=== PATIENT | female | born 1990 | race Caucasian/White ===

== ENCOUNTER → 2018-09-13 17:13 | Outpatient (CLI) | payer OTHER, SELFPAY ==
[2018-09-13 17:29] LABS: Bacteria Urine None Seen; RBC Urine None Seen (0-5/HPF); WBC Urine None Seen (0-5/HPF)
[2018-09-13 18:50] LABS: Hematocrit 38.2 % (36-46); Hemoglobin 13.5 g/dL (12.0-16.0); Mean Corpuscular HGB Conc 35.2 % (30-36); Mean Corpuscular Hemoglobin 33.2 PG (26-34); Mean Corpuscular Volume 94.3 fL (80-100); Platelet Count 243 X10^3/uL (150-400); Red Blood Cell Count 4.05 X10^6/uL (4.0-5.2); Red Cell Distribution Width 11.7 % (11.6-14.8); White Blood Cell Count 6.7 X10^3/uL (4.5-11.0)
[2018-09-13 19:50] LABS: Appearance Urine UA CLEAR; Bilirubin Urine UA NEGATIVE (NEGATIVE); Color Urine UA YELLOW; Glucose Urine UA NEGATIVE (Negative); Ketones Urine UA NEGATIVE (NEGATIVE); Leukocyte Esterase Urine UA NEGATIVE (NEGATIVE); Nitrite Urine UA NEGATIVE (Negative); Occult Blood Urine UA NEGATIVE (Negative); Protein Urine UA NEGATIVE (Negative); Specific Gravity Urine UA 1.015 (1.000-1.035); Urobilinogen Urine UA 0.2 E.U./dL (0.2)
[2018-09-13 19:51] LABS: Culture Indicated Urine Cult Not Indicated; Squamous Epithelial Cell Urine 5-10 /HPF (0-5/HPF)
[2018-09-13 20:36] LABS: Hepatitis B Surface Antigen NEGATIVE s/c (NEGATIVE); Rubella Antibody IgG 40.4 IU/mL (>15)
[2018-09-13 20:51] LABS: HIV 1 and 2 Antibody NEGATIVE (NEGATIVE)
[2018-09-15 12:21] LABS: RPR Screen Nonreactive (Nonreactive)
== END ==
PROVIDERS: Visit Provider Nurse Practitioner Obstetrics & Gynecology
DX: Z34.80 Encounter for supervision of other normal pregnancy, unspecified trimester (principal)
CPT/HCPCS: 36415; 81001; 85027; 86592; 86703; 86762; 86850; 86900; 86901; 87086; 87340

== ENCOUNTER → 2018-09-26 16:39 | Outpatient (REF) | payer OTHER, SELFPAY ==
[2018-09-26 18:34] LABS: Urine Chlamydia NOT DETECTED; Urine N gonorrhoeae NOT DETECTED
== END ==
LOC: LAB 16:39
PROVIDERS: Visit Provider Nurse Practitioner Obstetrics & Gynecology
DX: Z34.91 Encounter for supervision of normal pregnancy, unspecified, first trimester (principal); Z3A.01 Less than 8 weeks gestation of pregnancy
CPT/HCPCS: 87491; 87591

== ENCOUNTER → 2018-09-27 14:23 | Outpatient (CLI) | payer OTHER, SELFPAY ==
--- NOTE | 2018-09-27 | DI.US.S_ITS ---
PROCEDURE: US OB <= 14 WEEKS FETUS INDICATIONS: DATING AND VIABILITY OUTSIDE/PRIOR DATING DATA: Last menstrual period (LMP): 07/26/18. LMP-based estimated date of delivery (JUANCARLOS): 05/02/19. First dating scan (date and location): 09/27/18. Estimated date of delivery (JUANCARLOS) from first dating scan: 05/25/19. TECHNIQUE: Real-time scanning was performed of the fetus and maternal pelvic organs, with image documentation. Endovaginal scanning was also performed to better visualize the fetus and maternal ovaries. COMPARISON: None. FINDINGS: Embryo: [place]-rump length measured 2 mm corresponding to 5 weeks 5 days. Embryonic heart rate measured 97 beats per minute. Measurement variability in dating: +/- 4 weeks by LMP, +/- 7 days by mean sac diameter (use before 6 weeks gestation if crown-rump length not able to be measured), +/- 5 days by crown-rump length (up to 8 weeks 6 days gestation), +/- 7 days by crown-rump length (up to 13 weeks 6 days gestation). Maternal organs: Ovaries within normal limits, with left corpus luteal cyst. Limited images through the kidneys demonstrate no hydronephrosis. IMPRESSION: 5 week 5 day single living IUP. Dictated by: Eugenio Oro [facility] Interpreted: Prateek Rogers MD on 09/27/2018 at 15:59 Approved by: Prateek Rogers M.D. on 09/27/2018 at 16:47
== END ==
PROVIDERS: Visit Provider Nurse Practitioner Obstetrics & Gynecology
DX: Z34.91 Encounter for supervision of normal pregnancy, unspecified, first trimester (principal); Z3A.01 Less than 8 weeks gestation of pregnancy
CPT/HCPCS: 76801

== ENCOUNTER → 2018-12-10 16:36 | Outpatient (ROUT) | payer OTHER, SELFPAY ==
[2018-12-19 10:50] LABS: AFP, Serum 48.8 ng/mL; Calc Gestational Age 16.3; Est Date Determined by NOT GIVEN; Maternal Weight 155 lbs; Mother Ethnic Origin CAUCASIAN; Number of Fetuses 1; Prev Pregnancies Down Syndrome NOT GIVEN
== END ==
PROVIDERS: Visit Provider Nurse Practitioner Obstetrics & Gynecology
DX: Z34.82 Encounter for supervision of other normal pregnancy, second trimester (principal)
CPT/HCPCS: 82105

== ENCOUNTER → 2019-01-05 14:59 | Outpatient (CLI) | payer OTHER, SELFPAY ==
--- NOTE | 2019-01-05 | DI.US.S_ITS ---
PROCEDURE: US OB >= 14 WEEKS FETUS INDICATIONS: 20 WEEK ANATOMY OUTSIDE/PRIOR DATING DATA: Last menstrual period (LMP): 07/26/2018. LMP-based estimated date of delivery (JUANCARLOS): 05/02/2019. First dating scan (date and location): 09/27/2018. Estimated date of delivery (JUANCARLOS) from first dating scan: 05/25/2019. TECHNIQUE: Real-time scanning was performed of the fetus, with image documentation and biometric measurements. COMPARISON: Ultrasound 09/27/2018. FINDINGS: General: A single living intrauterine gestation is present. Presentation: Vertex. Placenta: Placental position is posterior, without previa. Low lying approximately 2.5 cm from the internal cervical os. Amniotic fluid index: 16.8 cm, normal range is 5-24 cm. heart rate: 141 beats per minute. Maternal cervical canal: 3.7 cm long. Normal lower limit is 2.5 cm. biometrics: Biparietal diameter: 4.7 cm. 20 weeks 2/7 days. Head circumference: 18.0 cm. 20 weeks 3/7 days. Abdominal circumference: 16.6 cm. 21 weeks 4/7 days. Femur length: 3.5 cm. 21 weeks 1/ 7 days. Estimated gestational age from initial scan: 20 weeks 0/7 days. Composite gestational age from present scan: 21 weeks 0/7 days Estimated weight and percentile: 411g. 97th percentile Measurement variability for biometric dating: +/- 7 days from 14 weeks to 15 weeks 6 days gestation, +/- 10 days from 16 weeks to 21 weeks 6 days gestation, +/- 2 weeks from 22 weeks to 27 weeks 6 days gestation, +/- 3 weeks for 28 weeks gestation or later. weight reference: 4500 g or EFW >90/95% is considered macrosomia or large for gestational age. EFW <10% is small for gestational age. EFW 5% or less is considered intra-uterine growth restriction. Anatomic survey: Neuro: Ventricles are non-dilated at less than 10 mm. Cisterna magna is normal at 3-11 mm. Cerebellum is normal in size and morphology. Nuchal skin fold: Normal at less than 6 mm between 14-21 weeks gestational age. Face: Nose and lips, facial profile are normal. Spine: No evidence for spina bifida. Heart: 4-chambered heart is present, with normal ventricular outflow tracts. Diaphragm: Diaphragm is intact. Stomach: Left-sided stomach is present. Kidneys: No hydronephrosis. Normal is less than 5 mm in 2nd trimester, less than 7 mm in 3rd trimester. Cord: 3-vessel cord has orthotopic insertion. Bladder: Normal in size. Extremities: All 4 extremities identified. IMPRESSION: 1.[place] living intrauterine at 21 weeks 0/7 days based on today's ultrasound. This is concordant with the initial first trimester ultrasound + or -10 days. There is expected interval growth. Estimated weight is in the 97th percentile. 2. Low lying placenta. Normal amniotic fluid. Recommend followup ultrasound. 3. Normal and complete anatomic survey. Dictated by: Williams Harris M.D. on 01/05/2019 at 22:02 Approved by: Williams Harris M.D. on 01/05/2019 at 22:14
== END ==
PROVIDERS: Visit Provider Nurse Practitioner Obstetrics & Gynecology
DX: Z36.89 Encounter for other specified antenatal screening (principal); Z3A.21 21 weeks gestation of pregnancy
CPT/HCPCS: 76811

== ENCOUNTER → 2019-02-17 06:51 | Outpatient (CLI) | payer OTHER, SELFPAY ==
[2019-02-17 09:17] LABS: Hemoglobin 12.7 g/dL (12.0-16.0); Mean Corpuscular HGB Conc 35.2 % (30-36); Mean Corpuscular Volume 96.5 fL (80-100); Platelet Count 160 X10^3/uL (150-400); Red Blood Cell Count 3.74 X10^6/uL (4.0-5.2); Red Cell Distribution Width 12.8 % (11.6-14.8); White Blood Cell Count 8.1 X10^3/uL (4.5-11.0)
[2019-02-17 09:19] LABS: Glucose Tol Interpretation INTERPRETATION
[2019-02-17 09:54] LABS: Glucose 1 Hour 167 mg/dL (70-170)
[2019-02-17 10:01] LABS: Glucose Fasting 79 mg/dL (70-100)
[2019-02-17 10:31] LABS: Glucose 2 Hour 98 mg/dL (70-140)
== END ==
PROVIDERS: Visit Provider Nurse Practitioner Obstetrics & Gynecology
DX: Z34.82 Encounter for supervision of other normal pregnancy, second trimester (principal)
CPT/HCPCS: 36415; 82951; 82952; 85027

== ENCOUNTER → 2019-04-29 12:09 | Outpatient (ROUT) | payer OTHER, SELFPAY | PROVIDERS: Visit Provider Nurse Practitioner Obstetrics & Gynecology | DX: Z11.0 Encounter for screening for intestinal infectious diseases (principal) | CPT/HCPCS: 87081 ==

== ENCOUNTER 2019-05-24 04:05 | Observation (INO) | payer OTHER, SELFPAY ==
--- NOTE | 2019-05-24 07:49 | PM.OBTRLD ---
Visit Information Visit Information Date of evaluation: 05/24/19 Primary OB Provider: Jillian Lee On-call OB Provider: Jillian Lee Reason for Evaluation: Yes rupture of membranes Comments/Additional reasons for admission: Gross SROM @ 0300 Vital Signs Vital Signs: BP 116/71, HR101, T36.1C, SpO2 97% (RA) COUNT INCLUDES THE [facility] Social History Smoking Status: Never smoker Review of Systems Review of Systems ROS Unobtainable: All systems reviewed & are unremarkable except as noted in HPI and below Exam Vital Signs (past 8 hours): P 116/71, HR101, T36.1C, SpO2 97% (RA) Narrative Exam Narrative: Pt calm, not breathing through contractions. OB/External & Speculum: deferred Manual OB Exam: other (deferred) Uterus Location (Fundal Height): 39 Presentation: vertex Amniotic Fluid: clear Evaluation Evaluation Baseline heart rate: 130 Variability: Moderate (11-25) monitor accelerations: Present monitor decelerations: Absent Contraction Frequency (minutes): 3 Uterine Contraction Intensity: Mild Category of Tracing: I Laboratory results: GBS negative Diagnosis, Plan/Disposition Final Diagnosis (1) Rupture of membranes with clear amniotic fluid: Current Visit: Yes Status: Acute Problem details: Counseled on options for expectant vs active management of prelabor rupture of membranes. pt declines admission and intervention at this time. Discharge to home w/ routine precautions. Pt agrees to return by 12 hours from SROM (3pm today).
== END 2019-05-24 04:50 | disposition home or self-care (01) ==
PROVIDERS: Admitting Provider Nurse Practitioner Obstetrics & Gynecology; Visit Provider Nurse Practitioner Obstetrics & Gynecology
DX: O42.02 Full-term premature rupture of membranes, onset of labor within 24 hours of rupture (principal)
CPT/HCPCS: 59025; G0378; G0379

== ENCOUNTER 2019-05-24 12:17 | Inpatient (IN) | payer OTHER, SELFPAY ==
--- NOTE | 2019-05-24 12:38 | PM.OBHP.1 ---
OB HPI Date/Time Date of admission: 05/24/19 Date Patient Seen: 05/24/19 Time Patient Seen: 12:30 History of Present Condition Chief complaint: eval of labor : 2 Para: 1 Estimated Date of Delivery: 05/25/19 Estimated Gestational Age (weeks): 39.6 Narrative: Ashley Lacy is a 29 year old female @ [id number] based on a 5 week US, presents for labor augmentation for PROM since 0300 w/ clear fluid. Has been feeling mild contractions since this morning that have not increased in frequency or intensity. Continues to feel FM. No VB. Uncomplicated PN care w/ CNM. Desires low intervention . History of Present care: good care, initiated at week # (5), number of visits (13) and pounds weight gain (46) Dating criteria: based on 1st trimester US only Ultrasounds: normal 1st trimester US and normal mid trimester US Obstetrical complications: none Preadmission Labs Blood type: B (+) positive -: Antibody screen: negative, Cystic fibrosis screen: negative, GBS status: negative, HBsAG: negative, HIV: negative and RPR/VDLR: negative -: Chlamydia screen: not detected and Gonorrhea screen: not detected -: Rubella: immune and Varicella: unknown Cell-free DNA: negative/female 3 hr GTT: 2 hr ([id number]/98) Prior (ies) History: 05/17/12- NSVB @ 00thg1g, female, 14hr pabor, epidural, 6#8oz, 1st degree perineal laceration Evaluation Evaluation Baseline heart rate: 145 Variability: Moderate (11-25) monitor accelerations: Present monitor decelerations: Absent Contraction Frequency (minutes): 0 Uterine Contraction Intensity: Mild Category of Tracing: I Cervical dilation (cm): 3 Cervical effacement (%): 90 station: -2 Comments: Gross SROM, clear PFSH Medical History (Updated 05/24/19 @ 12:53 by Jillian Lee CNM) Abnormal Pap smear of cervix (Chronic ~2014) Acne (Chronic ~2014) Anemia (Chronic) Anxiety (05/09/15) Anxiety (Chronic ~2010) Carpal tunnel syndrome (Chronic ~2010) Chronic back pain (Chronic ~2010) Eczema (Chronic) Feared complaint without diagnosis (Inactive) Fibromyalgia (05/09/15) Fibromyalgia (Chronic ~2014) Frequent UTI (Chronic ~2006) Hay fever (Chronic) Headache (Chronic) Human papilloma virus (Chronic ~2014) Low back pain without sciatica (01/01/16) Migraines (Chronic) Ovarian cyst (Chronic ~2011) Paresthesia of upper extremity (Inactive) Psoriasis (Chronic ~2014) Restless leg syndrome (Chronic ~2011) Restless legs syndrome (05/09/15) Rosacea (Chronic) Shoulder pain (Chronic ~2010) Urinary incontinence (Chronic ~2011) Vertigo (Chronic ~2014) Vitamin D deficiency (Acute) Surgical History Anesthesia (Resolved) History of bilateral salpingo-oophorectomy (BSO) Status post breast reduction Social History Smoking Status: Never smoker Meds Home Medications and Allergies Home Medications Medication Instructions Recorded Confirmed Type PNV cmb#95-ferrous fumarate-FA 1 tab PO DAILY 05/24/19 05/24/19 History [] Allergies Allergy/AdvReac Type Severity Reaction Status Date / Time Sulfa (Sulfonamide Allergy Mild Verified 03/02/18 13:14 Antibiotics) [SULFA (SULFONAMIDE ANTIBIOTICS)] Review of Systems Review of Systems ROS Unobtainable: All systems reviewed & are unremarkable except as noted in HPI and below Exam Vital Signs (past 8 hours): BP 137/80, HR97, T36.7C Chest Chest: normal inspection of the chest Resp Effort & Inspection: normal respiratory effort Auscultation: clear to auscultation bilaterally Cardio Rate: regular rate Rhythm: regular rhythm Heart Sounds: S1 normal and S2 normal Manual OB Exam: dilated 3, effaced 75% and station -2 Uterus Location (Fundal Height): 39 Presentation: vertex Estimated Weight (lbs): 8 Amniotic Fluid: clear Assessment and Plan Assessment and Plan Assessment and Plan narrative: Term primipara PROM x 10 hours without sx of infection No indication for GBS prophylaxis Cat I FHR P: Admit, routine orders w/ CBC, T&S and pitocin augmentation. Labor support PRN. Reassess in 4 hours or sooner, PRN. /OB back-up notified of pt admit status and plan of care. Time Spent with Patient Total time spent with greater than 50% in coordination of care (as documented) at patient's floor/unit and/or counseling patient:: 25 - 35 minutes
[2019-05-24 13:14] LABS: Add Manual Diff / Slide Review NO; Basophils Absolute Auto 0 /uL (0-100); Basophils Percent Auto 0.3 % (0-2); Eosinophils Absolute Auto 100 /uL (0-450); Eosinophils Percent Auto 0.7 % (2-4); Hemoglobin 12.4 g/dL (12.0-16.0); Lymphocytes Absolute Auto 1600 /uL (1100-4500); Lymphocytes Percent Auto 17.3 % (25-40); Mean Corpuscular HGB Conc 35.5 % (30-36); Mean Corpuscular Hemoglobin 33.8 PG (26-34); Mean Corpuscular Volume 95.3 fL (80-100); Monocytes Absolute Auto 500 /uL (0-900); Monocytes Percent Auto 5.6 % (3-14); Neutrophils Absolute Auto 7000 /uL (1500-7000); Neutrophils Percent Auto 76.1 % (50-75); Platelet Count 157 X10^3/uL (150-400); Red Blood Cell Count 3.68 X10^6/uL (4.0-5.2); White Blood Cell Count 9.2 X10^3/uL (4.5-11.0)
[2019-05-24] MEDS: LACTATED RINGERS 1,000 ML 125 ML IV ×3 (13:53→22:24)
[2019-05-24] MEDS: OXYTOCIN PREMIX 30 UNIT/500 ML PLAST..BAG IV (13:54)
[2019-05-24 13:58] VITALS: BP 122/71
--- NOTE | 2019-05-24 17:15 | PM.OBPNLAB ---
Date/Time Date Patient Seen: 05/24/19 Time Patient Seen: 17:00 Pain Control Pain control: tolerating well Comments: Feeling stronger contractions and considering intervention for pain. Pelvic Exam Dilation (cm): 3 Effacement (%): 90 station: -2 Comments: CE deferred at this time as patient is not breathing through strong contractions yet. Contractions Date/Time contractions began: Mild contractions since 0300, just starting to get stronger at 1600 today after pitocin augmentation started at 1350 Contractions on admission: regular Monitor mode: External Pitocin rate (mU/min): 8 Contraction frequency (min): 2 Contraction duration (min): 60 Contraction pattern: Regular Contraction intensity: Mild Status status: Category ll Heart Rate Baseline: 140 Monitor Accelerations: Present Monitor Decelerations: Variable Monitor Variability: Moderate Comments: Overall reassuring Assessment and Plan Assessment: active labor Plan: continuous present management Comments: Continue pitocin titration to adequate contraction pattern. Encouraged pt to get into tub and assisted to transition to tub where patient reported adequate pain relief. Will repeat CE after 2 hours of strong ctx or sooner, PRN.
--- NOTE | 2019-05-24 19:32 | PM.OBPNLAB ---
Date/Time Date Patient Seen: 05/24/19 Pain Control Pain control: epidural Comments: Pt tried labor tub and then nitrous oxide while awaiting epidural Pelvic Exam Dilation (cm): 4 Effacement (%): 90 station: -2 Amniotic membrane status: Leaking Contractions Date/Time contractions began: tachysystole at maximun pitocin rate of 9mu/min. pitocin decreased to 7mu/min while awaiting epidural. Contractions on admission: irregular Monitor mode: External Pitocin rate (mU/min): 7 Contraction frequency (min): 2 Contraction duration (min): 60 Contraction pattern: Regular Contraction intensity: Strong/Firm Status status: Category ll Heart Rate Baseline: 125 Monitor Accelerations: Present Monitor Decelerations: Early Monitor Variability: Moderate Assessment and Plan Assessment: active labor Plan: continuous present management Comments: Continue pitocin titration to adequate contraction pattern
--- NOTE | 2019-05-25 00:03 | PM.OBPNLAB ---
Date/Time Date Patient Seen: 05/25/19 Time Patient Seen: 22:30 Pain Control Pain control: epidural Comments: CNM called for 2nd prolonged deceleration at 2200 lasting 10 minutes w/ crista to 70, returned slowly to baseline w/ moderate variability and acccelerations seen at time of recovery. Pt on hands and knees w/ pitocin off, 200mL IVFB running and O2 @ 100% by NRB mask. Pelvic Exam Dilation (cm): 9 Effacement (%): 100 station: 0 Amniotic membrane status: Leaking Comments: fluid remains clear Contractions Contractions on admission: irregular Monitor mode: External Pitocin rate (mU/min): 0 Contraction frequency (min): 3 Contraction duration (min): 60 Contraction pattern: Regular Contraction intensity: Strong/Firm Status status: Category ll Heart Rate Baseline: 145 Monitor Accelerations: Present Monitor Decelerations: Early (Variable and prolonged x2) Monitor Variability: Moderate Assessment and Plan Assessment: active labor Plan: continuous present management Comments: Will restart pitocin if contractions space and FHR remains reassuring. Anticipate beginning second stage soon. Will consult for NRFHTs PRN.
--- NOTE | 2019-05-25 03:37 | PM.OBPRVD ---
 Events: Labor Augmentation and Prolonged Rupture of Membrane Labor & Delivery Delivery date: 05/25/19 Cervical ripening method: none Induction method: none Delivery augmentation: pitocin Delivery monitor: external FHT Route of delivery: L&D Laceration Description: None Estimated blood loss (mL): 250 Anesthesia type: Epidural Narrative: After laboring down for 1 hour, patient pushed effectively w/ coaching and encouragement. Cat II FHR throughout second stage for mild variables. NSVB of a viable baby girl in YESSI position sommersaulted through a double tight nuchal cord w/ easy delivery of the shoulders. was placed on maternal abdomen for drying and stimulation with spontaneous cry before 30 seconds of life. Remaining 30 units of pitocin in 500mL LR was increased to 300mL/hr for AMTSL. After cessation of pulsation, the courd was double clamped and cut. Gentle cord traction and single maternal push led to spontaneous Schultze delivery of an apparently intact placenta, membranes and 3VC after 26 minutes of third stage. Fundus was immediately firm and bleeding minimal. 150mL was drained from the bladder w/ a straight catheter. QBL 250mL. Prior to leaving the room, fundus remained firm, but small gushes of blood were noted and cytotec was ordered. Baby 1: Infant gender: Female Presentation: vertex position: Right Occiput Anterior (YESSI) Placenta delivery description: Spontaneous cord vessel description: 3 Vessels score (1 min): 8 score (5 min): 9 Plan for aftercare: Routine PP orders. Anticipate discharge in 24-36 hours.
[2019-05-25] MEDS: miSOPROStoL 200 MCG TABLET 400 MCG PO (04:11)
[2019-05-25] MEDS: ACETAMINOPHEN 325 MG TABLET 650 MG PO ×4 (04:15→23:08)
[2019-05-25] MEDS: DERMOPLAST SPRAY 20% 60 ML 1 SPRAY TOP (04:15)
[2019-05-25] MEDS: IBUPROFEN 600 MG TABLET PO ×4 (04:16→23:07)
[2019-05-25] MEDS: PRENATAL VIT,CALC/IRON/FOLIC 1 TABLET 1 TAB PO (08:33)
[2019-05-25] MEDS: DOCUSATE 100 MG CAPSULE PO (08:33)
[2019-05-26] MEDS: ACETAMINOPHEN 325 MG TABLET 650 MG PO ×2 (05:01→11:14)
[2019-05-26] MEDS: IBUPROFEN 600 MG TABLET PO ×2 (05:01→11:14)
--- NOTE | 2019-05-26 08:27 | P.DS_ITS ---
Discharge Providers Provider Date of admission: 05/24/19 12:17 Discharge Date: 05/26/19 Primary care physician: Jillian Lee CNM Consults: 05/26/19 03:33 Consult to Lead Injection Mold Technician Routine Comment: Discharge provider: Jillian Lee CNM Summary Hospital Course Date Patient Seen: 05/26/19 Time Patient Seen: 08:00 Peripartum Data Delivery Method: Natural Vaginal Laceration description: None complications: none [place] 1: Gender: Female Disposition of : home Status at Discharge Cognitive/behavioral status at discharge: oriented Functional status at discharge: independent ambulation Overall status at discharge: patient is progressing back to baseline Time Spent with Patient Time attestation: Total time spent providing and/or coordinating discharge services: Time spent: Less than 30 minutes Objective Labs Result Diagrams: 05/24/19 12:55 Exam Vital Signs (past 8 hours): BP 110/71, HR80, RR18, T97.8F Other: Fundus firm at U-1, lochia light-no clots Psych Appearance: grossly normal and well kempt Speech and Movement: speech and movement normal Mood: congruent mood Affect: normal affect Attitude: cooperative Thought Process: normal Judgment: judgment good Discharge Plan Discharge Plan Patient Disposition: Home Discharge orders & Medications Prescriptions: New acetaminophen 325 mg Tablet 650 mg PO Q6HR PRN (Reason: Pain, Mild (1-3)) 14 Days Qty: 60 RF: 2 docusate sodium [DOK] 100 mg Capsule 100 mg PO DAILY 7 Days Qty: 14 RF: 0 ibuprofen 600 mg Tablet 600 mg PO Q6HR PRN (Reason: Pain, Mild (1-3)) 14 Days Qty: 60 RF: 2 Eew-Y-Sukvyj Cream 1 applic topical PRN PRN (Reason: Sore Nipples) 14 Days Qty: 60 RF: 0 Continued PNV cmb#95-ferrous fumarate-FA [] 28 mg iron- 800 mcg Tablet 1 tab PO DAILY 365 Days Qty: 100 RF: 4 Follow up/Referrals: Jillian Lee CNM [[facility]] - (Follow-up in 2 weeks and 6 week . Patient to schedule appointments online at her convenience.) Diet/Activity/Treatments Diet: Regular Activity: pelvic rest x 6 weeks Skin/Wound/Dressing Care Report to your healthcare provider any signs of infection, such as:: chills, fever and increased pain Visit Report/Discharge Packet Instructions: Successfully
[2019-05-26] MEDS: DOCUSATE 100 MG CAPSULE PO (09:20)
[2019-05-26] MEDS: PRENATAL VIT,CALC/IRON/FOLIC 1 TABLET 1 TAB PO (09:20)
[2019-05-26 09:30] VITALS: BP 114/73; PULSE 81; RESP 16; TEMP 37.1
== END 2019-05-26 13:07 | disposition home or self-care (01) | DRG 807 ==
PROVIDERS: Nurse Practitioner Obstetrics & Gynecology; Admitting Provider Obstetrics & Gynecology; Visit Provider Obstetrics & Gynecology
DX: O42.02 Full-term premature rupture of membranes, onset of labor within 24 hours of rupture (principal); Z37.0 Single live birth; O69.81X0 Labor and delivery complicated by cord around neck, without compression, not applicable or unspecified; O36.8330 Maternal care for abnormalities of the fetal heart rate or rhythm, third trimester, not applicable or unspecified; Z3A.39 39 weeks gestation of pregnancy
CPT/HCPCS: 01967; 59025; 59050; 85025; 86850; 86900; 86901; G0378; G0379; J2590; S0191

== ENCOUNTER → 2022-05-07 08:43 | Outpatient (CLI) | payer OTHER, SELFPAY | PROVIDERS: Visit Provider Obstetrics & Gynecology | DX: R39.9 Unspecified symptoms and signs involving the genitourinary system (principal) | CPT/HCPCS: 87086 ==

== ENCOUNTER 2022-07-09 10:44 | Day surgery (SDC) | payer OTHER, SELFPAY ==
[2022-07-06 08:44] VITALS: BMI 23.1
--- NOTE | 2022-07-09 | PATH_ITS ---
[facility] Accession Number: [id number] No. of containers..01 Tissue . 01 Material submitted: . cervix - LEEP CONE BIOPSY . 01 Clinical history: . LEEP PROCEDURE STITCH @ 12 O'CLOCK . 01 Diagnosis: LEEP Cone Biopsy: Patchy involvement by low-grade squamous intraepithelial lesion / ROBERT-1 is present in all quadrants. Background of reactive changes, hyperkeratosis, and parakeratosis. No high-grade dysplasia or invasive tumor identified. The endocervical margin appears negative for dysplasia; electrocautery artifact and tissue disruption are obscuring. The ectocervical margin appears negative for dysplasia; electrocautery artifact and tissue disruption are obscuring. Mild, focal biopsy site changes present; please see comment. V 07/16/2022 1742 Local . 01 Comment: This patient's previous biopsies ([facility] [id number]; 05/07/2022) are reviewed. Due to tissue fragmentation, complete excision of the high-grade focus in Uterine cervix 12 o'clock colposcopic biopsy (part A) cannot be assured. Please correlate with imaging and clinical findings. . As part of ongoing air quality manager, this case is also reviewed by Dr. Charlene Suazo, who concurs with the given interpretation. . 01 Electronically signed: . Ju Cordova MD, Pathologist NPI- [id number] . 01 Gross description: . The specimen is received in formalin labeled with the patient's name, , and LEEP cone biopsy, and consists of an oriented cervical specimen with a suture designating 12 o'clock per the requisition. The specimen measures 1.4 cm from 12 o'clock to 6 o'clock, 2.3 cm from 3 o'clock to 9 o'clock, and is excised to a depth of 0.3 cm. The ectocervix is pink-smith and wrinkled. The endocervical canal is reapproximated to be slit like and measures 0.5 cm in diameter. The endocervical margin is inked orange while the remaining stromal margins are inked blue. The specimen is radially sectioned and submitted entirely as follows: A1: 12 o'clock to 3 o'clock. A2: 3 o'clock to 6 o'clock. A3: 6 o'clock to 9 o'clock. A4: 9 o'clock to 12 o'clock. ([id number]) /WINIFRED 07/10/2022 1100 Local . 01 Pathologist provided ICD-10: N87.9, N87.0 . 01 CPT . 586818 Performed at: 01 [facility] [address] [place] [address], [place], [place] [id number] MD Walter Phan MD Phone: [phone]
[2022-07-09] MEDS: LACTATED RINGERS 1,000 ML 100 ML IV (11:02)
[2022-07-09 11:12] VITALS: BP 107/64; PULSE 62; RESP 20; TEMP 36.4; O2SAT 100; BMI 23.1
--- NOTE | 2022-07-09 13:26 | P.HP_ITS ---
History of Present Illness History of Present Illness Date Patient Seen: 07/09/22 Time Patient Seen: 13:26 Chief complaint: LEEP Procedure Narrative: Patient is a 32-year-old 2 para 2 who presents for LEEP cone biopsy of the cervix due to high-grade dysplasia. Patient History Medical History (Updated 05/24/19 @ 12:53 by Jillian Connelly CNM) Abnormal Pap smear of cervix (~2014) Acne (~2014) Anemia Anxiety (05/09/15) Anxiety (~2010) Carpal tunnel syndrome (~2010) Chronic back pain (~2010) Eczema Feared complaint without diagnosis Fibromyalgia (05/09/15) Fibromyalgia (~2014) Frequent UTI (~2006) Hay fever Headache Human papilloma virus (~2014) Low back pain without sciatica (01/01/16) Migraines Ovarian cyst (~2011) Paresthesia of upper extremity Psoriasis (~2014) Restless leg syndrome (~2011) Restless legs syndrome (05/09/15) Rosacea Shoulder pain (~2010) Urinary incontinence (~2011) Vertigo (~2014) Vitamin D deficiency Surgical History (Updated 07/06/22 @ 08:48 by Essence Claros RN) Anesthesia History of colposcopy S/P unilateral salpingo-oophorectomy (~2011) Status post breast reduction Family & Social History Family History Grandfather No problems noted. Grandmother No problems noted. Grandmother No problems noted. Social History: household members spouse Tobacco & Substance use: Smoking Status Never smoker alcohol intake never Substance Use Type does not use Meds Home Medications and Allergies Allergies Allergy/AdvReac Type Severity Reaction Status Date / Time Sulfa (Sulfonamide Allergy Mild Rash Verified 07/09/22 11:04 Antibiotics) [SULFA (SULFONAMIDE ANTIBIOTICS)] Exam Vital Signs (past 8 hours): - 07/09/22 11:12 Temperature 97.6 F Pulse Rate 62 Respiratory Rate 20 Blood Pressure 107/64 Pulse Oximetry 100 Oxygen Delivery Method Room Air Oxygen Delivery Method Room Air Narrative Exam Narrative: HEENT: No thyromegaly, no anterior cervical or supraclavicular lymphadenopathy. Breasts: Reduction scars Lungs:Clear to auscultation bilaterally, no wheezes. Cardiovascular: Regular rate and rhythm, no murmurs, rubs, or gallops. External genitalia: Normal Vagina: Normal Cervix: Normal Bimanual exam: 6 Week size anteverted uterus. Mobile. Extremities: Multiple tattoos. No edema. Assessment & Plan Assessment & Plan narrative: Assessment: 32-year-old 2 para 2 with high-grade dysplasia of the cervix Plan: LEEP cone biopsy of the cervix The risks, benefits, and alternatives to the procedure were explained to the patient. The risks including bleeding and infection. She understands these ri sks and agrees to proceed. A full par Q was held and consent form was signed. Time Spent With Patient Time with patient: less than 30 minutes Critical Care time: I spent a total of [] minutes of critical care time on this patient's care today; this time is exclusive of procedural time.
--- NOTE | 2022-07-09 13:28 | PM.PREOP ---
Pre-operative Note COVID-19 Criteria for continued procedure: Non-surgical alternatives not available or appropriate per current SOC Interval Note History & Physical reviewed/Exam performed by Physician: Yes Changes to H&P: No H&P completed within 30 days and has changed as indicated here:: 07/09/22
--- NOTE | 2022-07-09 13:50 | SUR.OPER ---
Lithotomy on padded OR bed, head on pillow, arms secured on padded arm boards at <90 degrees abduction. Legs secured in padded yellow fins stirrups. Pt positioned per direction and supervision of Dr Hernandez.
[2022-07-09] MEDS: POTASSIUM IODIDE/IODINE 473 ML SOLUTION TOP (13:52)
--- NOTE | 2022-07-09 14:08 | PM.GYNOP.1 ---
Operative Date/Time/Diagnoses Date of procedure: 07/09/22 Time of procedure: 14:08 Procedure & Clinicians Procedure: Procedures Operation Date: 07/09/22 12:30 Actual Procedure Side Surgeon amador PAZ Cone Bx Not Applicable Marisela Hernandez MD Indications: High grade cervical dysplasia by colposcopic biopsy at 12 o'clock position Surgeon: Marisela Hernandez Anesthesia Type: General (LMA) Operative Notes Findings: Lugol's light area at the 12 o'clock position Closure Type: not applicable Specimen(s): other (Cone bx of cervix, stitch at 12 o'clock) Estimated blood loss (mL): 5 Blood products transfused: none Procedure in detail: After informed consent was obtained, the patient was taken to the operating room where she was placed in the dorsal supine position. After adequate LMA general anesthesia was achieved, she was placed in the dorsal lithotomy position, and prepped and draped in the usual sterile fashion. A plastic coated bivalve speculum was placed into the vagina. Lugol solution was applied to the cervix. There was a Lugol's light area at the 12 o'clock position. The plastic coated single-tooth tenaculum was placed on the anterior lip of the cervix. Using a 1.5 cm loop, the Lugol's light area was excised, with settings at 60 cut and 40 cautery. The specimen was tagged at the 12 o'clock position with a suture. Ball cautery was used for hemostasis at the base of the cone. The plastic coated single-tooth tenaculum was removed from the anterior lip of the cervix. The plastic coated bivalve speculum was removed from the vagina. Three sources of suction were used throughout the case. N95 masks were worn by all personnel in the operating room. Sponge, lap, and instrument counts were correct x2. The patient tolerated the procedure well, and was taken to PACU in stable condition. Complications: none Post-operative Condition: stable Disposition: PACU Plan for aftercare: Home afte recovery
[2022-07-09 14:16] VITALS: BP 112/74; PULSE 66; RESP 10; TEMP 36.8; O2SAT 100
[2022-07-09 14:25] VITALS: BP 109/69; PULSE 64; RESP 19; TEMP 36.6; O2SAT 98
[2022-07-09 14:32] VITALS: BP 116/64; PULSE 60; RESP 16; TEMP 36.6; O2SAT 99
== END 2022-07-09 14:46 | disposition home or self-care (01) ==
LOC: OR 10:45
PROVIDERS: Referring Provider Obstetrics & Gynecology; Visit Provider Obstetrics & Gynecology
PROC: 0UBC7ZZ Excision of Cervix, Via Natural or Artificial Opening (ICD-10-PCS; CPT 57522; principal; 2022-07-09 12:30)
DX: N87.0 Mild cervical dysplasia (principal)
CPT/HCPCS: 57522; J1100; J1885; J2250; J2405; J3010

== ENCOUNTER → 2023-03-16 08:57 | Outpatient (CLI) | payer OTHER, SELFPAY ==
[2023-03-16 10:20] LABS: Alanine Aminotransferase 34 IU/L (<35); Albumin 4.7 g/dL (3.5-5.0); Albumin Globulin Ratio 1.4 (1.0-2.8); Alkaline Phosphatase 46 U/L (38-126); Aspartate Aminotransferase 39 IU/L (14-36); BUN Creatinine Ratio 21.5 (6-22); Bilirubin Total 1.5 mg/dL (0.2-1.3); Blood Urea Nitrogen 14 mg/dL (7-17); Calcium 9.8 mg/dL (8.4-10.2); Carbon Dioxide 25 mmol/L (22-32); Chloride 101 mmol/L (98-107); Estimated Glomerular Filt Rate > 60 mL/min (>60); Globulin 3.3 g/dL (1.7-4.1); Glucose 94 mg/dL (70-100); HEMOLYSIS < 15 (0-50); Sodium 137 mmol/L (137-145)
[2023-03-16 10:39] LABS: Vitamin D 25 Hydroxy (D3) 32.8 ng/mL (30.0-100.0)
[2023-03-16 10:53] LABS: TSH w/ Reflex to FT4 3.22 uIU/mL (0.47-4.68)
[2023-03-16 11:17] LABS: Add Manual Diff / Slide Review NO; Basophils Absolute Auto 100 /uL (0-100); Basophils Percent Auto 1.4 % (0-2); Eosinophils Absolute Auto 100 /uL (0-450); Eosinophils Percent Auto 1.5 % (2-4); Hematocrit 39.3 % (36-46); Lymphocytes Absolute Auto 1900 /uL (1100-4500); Lymphocytes Percent Auto 37.1 % (25-40); Mean Corpuscular HGB Conc 35.7 % (30-36); Mean Corpuscular Hemoglobin 32.4 PG (26-34); Mean Corpuscular Volume 90.6 fL (80-100); Monocytes Absolute Auto 300 /uL (0-900); Monocytes Percent Auto 5.8 % (3-14); Neutrophils Absolute Auto 2800 /uL (1500-7000); Neutrophils Percent Auto 54.2 % (50-75); Platelet Count 237 X10^3/uL (150-400); Red Blood Cell Count 4.34 X10^6/uL (4.0-5.2); Red Cell Distribution Width 12.8 % (11.6-14.8); White Blood Cell Count 5.2 X10^3/uL (4.5-11.0)
== END ==
PROVIDERS: PCP Student in an Organized Health Care Education/Training Program; Referring Provider Student in an Organized Health Care Education/Training Program; Visit Provider Student in an Organized Health Care Education/Training Program
DX: R53.83 Other fatigue (principal)
CPT/HCPCS: 36415; 80053; 82306; 84443; 85025

== ENCOUNTER 2024-03-30 09:05 | Emergency (ER) | payer OTHER, SELFPAY ==
[2024-03-30 09:17] VITALS: BP 132/85; PULSE 95; RESP 15; TEMP 37.4; O2SAT 96
--- NOTE | 2024-03-30 11:11 | PC.NURSE ---
Paged for @[phone]. Provider will return call.
--- NOTE | 2024-03-30 12:53 | ED.PSYCH ---
HPI - Psych General Chief Complaint: Psychiatric Symptoms Stated Complaint: Mental Breakdown Time Seen by Provider: 03/30/24 12:34 Source: patient Mode of arrival: Ambulatory History of Present Illness HPI Narrative: Patient is a 34-year-old female without significant medical problems presenting to day feeling extremely anxious. Found out daughter has been talking to her biological dad behind her back. Patient just told her about it last night. She is feeling extremely anxious. They do not have any kind of parenting plan in place biological father has not been part of their lives for some time. He has not abusive. Patient feels safe in her current relationship now. She has therapy now. She denies any suicidal homicidal ideations. She actually had a small therapy session while in the emergency department. sHe has been evaluated by social work. No other complaints Related Data Previous Rx's Medication Instructions Recorded aripiprazole 10 mg tablet 10 mg PO DAILY #30 tabs 07/08/23 Allergies Allergy/AdvReac Type Severity Reaction Status Date / Time Sulfa (Sulfonamide Allergy Mild Rash Verified 03/30/24 09:17 Antibiotics) [SULFA (SULFONAMIDE ANTIBIOTICS)] Patient History Medical History Chronic cough Allergies (~2000) PTSD (post-traumatic stress disorder) Anorexia nervosa Tinnitus (~03/10/23) Hormone imbalance Secondhand smoke exposure Lower abdominal pain Lower urinary tract symptoms Vitamin D deficiency Paresthesia of upper extremity Hay fever Anxiety (~2010) Restless leg syndrome (~2011) Migraines Headache Shoulder pain (~2010) Fibromyalgia (~2014) Chronic back pain (~2010) Carpal tunnel syndrome (~2010) Rosacea Psoriasis (~2014) Eczema Acne (~2014) Anemia Vertigo (~2014) Ovarian cyst (~2011) Human papilloma virus (~2014) Abnormal Pap smear of cervix (~2014) Urinary incontinence (~2011) Frequent UTI (~2006) Low back pain without sciatica (01/01/16) Restless legs syndrome (05/09/15) Fibromyalgia (05/09/15) Anxiety (05/09/15) Feared complaint without diagnosis Surgical History History of colposcopy S/P unilateral salpingo-oophorectomy (~2011) Anesthesia Status post breast reduction Family History Grandfather No problems noted. Grandmother No problems noted. Grandmother No problems noted. Social History marital status: number of children: 2 household members: spouse Smoking Status: Never smoker alcohol intake: never caffeine: No Type(s) of exercise: walking frequency: daily Smoking Status: Never smoker alcohol intake frequency: holidays/special occasions only Substance Use Type: does not use Exam Initial Vital Signs Initial Vital Signs: Vital Signs Temperature 99.3 F 03/30/24 09:17 Pulse Rate 95 H 03/30/24 09:17 Respiratory Rate 15 03/30/24 09:17 Blood Pressure 132/85 03/30/24 09:17 Pulse Oximetry 96 03/30/24 09:17 Oxygen Delivery Method Room Air 03/30/24 09:17 GENERAL: Well-appearing, well-nourished and in no acute distress. CARDIOVASCULAR: peripheral pulses in tact, cap refill <2 sec RESPIRATORY: No respiratory distress, speaks in full sentences without difficulty EXTREMITIES: Normal range of motion, no clubbing or edema. Neurovascularly intact NEUROLOGICAL: Cranial nerves II through XII grossly intact. Normal gait and speech. SKIN: Warm, dry, no petechiae, no rashes or lesions. Course Orders Ordered: ED Orders 03/30/24 10:22 Consult to NEWBORN PHOTOGRAPHER - Hospice Bereavement Coordinator Stat Vital Signs Vital signs: Vital Signs - 8 hr 03/30/24 09:17 03/30/24 13:11 Temperature 99.3 F 98.3 F Pulse Rate 95 H 89 Respiratory Rate 15 16 Blood Pressure 132/85 124/83 Pulse Oximetry 96 97 Oxygen Delivery Method Room Air Room Air MDM - Psych MDM Narrative Medical decision making narrative: Patient is a 34-year-old female presents today with anxiety. No suicidal homicidal ideations. Lots of stressors at home. Evaluated by child welfare social worker today in the emergency department. Does not meet involuntary criteria does not want mental health placement. Has therapy set up. Discharge Plan Departure Patient Disposition: Home Clinical Impression: [id number] Instructions: DI for Anxiety -- Adult Activity Restrictions/Additional Instructions: *You have been diagnosed with anxiety *What to do: And so got that you have therapy. I wish she would best of luck with hard conversations coming up *Continue to take medications as directed *Follow up with your primary care provider in 2-3 days or call [phone] *Return to ER if you should have any new, worsening or concerning symptoms Prescriptions: No Action aripiprazole 10 mg tablet 10 mg PO DAILY Qty: 30 6RF Referrals: Priya Schmitz MD [Primary Care Provider] - Stand Alone Forms: Patient Portal/API/Survey
--- NOTE | 2024-03-30 13:04 | CM.SWNOTE ---
ED ORACLE HRMS DEVELOPER Assessment Note: Patient is a 34yo female, resident of [place], presented to the ED today as she was not feeling safe at home with passive SI and overwhelm. Patient lives with her and their two daughters. ORACLE HRMS DEVELOPER reviewed EMR and discussed pt with ED staff. Per RN, pt had a therapy appointment scheduled today at 11:00a via phone call and was encouraged to continue with appt. PCP: Dr. Priya Schmitz, Insurance: [facility]. ED ORACLE HRMS DEVELOPER entered room and introduced self and role. Pt explained recent events and stressors that are contributing to her current mood. Pt explained she has been hiding a secret from her about her daughter who has been communicating with her biological father via text. Pt explained this is causing marital issues. Pt denies any concerns of DV. Pt denies HI and explains her SI is passive but she has no plans or intentions, I think about it and it's too final for me. Pt explained she has a history of JOSUE and PTSD in which she is seeing her therapist for (Viviane Palmer, ph# [phone]), she is not currently taking any psychotropic medication. Pt does not wish for any medication intervention at this time, even PRN medication. Pt does not feel IOP or inpatient is necessary at this time. Pt able to contract for safety. ED ORACLE HRMS DEVELOPER discussed [facility] and gave handout in case pt discusses with therapist and identifies IOP is necessary. ED ORACLE HRMS DEVELOPER provided pt with Crisis contacts. ED ORACLE HRMS DEVELOPER discussed this with ED Provider, Dr. Sanchez who indicated understanding. Plan: Pt to discharge home, follow up with therapist at [facility] tomorrow, 03/31 at 9:00am. [facility] [place]
[2024-03-30 13:11] VITALS: BP 124/83; PULSE 89; RESP 16; TEMP 36.8; O2SAT 97
== END 2024-03-30 13:12 | disposition home or self-care (01) ==
PROVIDERS: Emergency Provider Emergency Medicine; PCP Student in an Organized Health Care Education/Training Program
DX: F41.9 Anxiety disorder, unspecified (principal)
CPT/HCPCS: 99283